=== PATIENT | female | born 1965 | race Two or more races ===

== ENCOUNTER 2023-04-30 00:44 | Emergency (ER) | payer SELFPAY ==
[2023-04-30] MEDS ORDERED: Labetalol 20 MG/4 ML Syringe IVPUSH ONE (01:04)
[2023-04-30 01:11] LABS: BASOPHILS PERCENT AUTO 0.3 % (0.1-1.3); EOSINOPHILS ABSOLUTE AUTO 0.18 K/uL (0.00-0.40); EOSINOPHILS PERCENT AUTO 2.3 % (0.0-5.4); HEMATOCRIT 44.2 % (34.3-46.0); HEMOGLOBIN 14.2 g/dL (11.2-15.5); IMMATURE GRAN PERCENT AUTO 0.3 % (0.0-0.7); LYMPHOCYTES ABSOLUTE AUTO 3.61 K/uL (0.8-3.3); LYMPHOCYTES PERCENT AUTO 45.9 % (11.4-47.7); MEAN CORPUSCULAR HEMOGLOBIN 29.2 pg (31.6-35.5); MEAN CORPUSCULAR HGB CONC 32.1 g/dL (31.6-35.5); MEAN CORPUSCULAR VOLUME 90.9 fL (81.4-99.0); MONOCYTES ABSOLUTE AUTO 0.57 K/uL (0.20-0.90); MONOCYTES PERCENT AUTO 7.3 % (3.3-12.6); NEUTROPHILS ABSOLUTE AUTO 3.46 K/uL (1.0-7.6); NEUTROPHILS PERCENT AUTO 43.9 % (40.0-78.1); PLATELET COUNT,PLT 190 K/uL (130-375); RED BLOOD CELL COUNT 4.86 M/uL (3.77-5.24); WHITE BLOOD CELL COUNT,WBC 7.9 K/uL (3.2-11.0)
[2023-04-30 01:13] LABS: BASOPHILS ABSOLUTE AUTO 0.02 K/uL (0.00-0.10); IMMATURE GRAN ABSOLUTE AUTO 0.02 K/uL (0.00-0.23)
[2023-04-30 01:27] LABS: CALCIUM 8.9 mg/dL (8.5-10.1); CREATININE 0.8 mg/dL (0.6-1.0); EST CRCL DRUG DOSING (CG) 63.41 mL/min; POTASSIUM,K 3.5 mmol/L (3.6-5.2)
[2023-04-30 01:28] LABS: ANION GAP 9.5 mmol/L (5.0-14.0)
[2023-04-30] MEDS ORDERED: methylPREDNISolone Sodium Succinate 125 MG/2 ML SDV IVPUSH ONE (01:42)
== END 2023-04-30 02:11 | disposition home or self-care (01) ==
LOC: JP.ED 00:44
DX: G51.0 Bell's palsy (principal)
CPT/HCPCS: 36415; 70450; 80048; 82947; 85025; 96374; 96375; 99284; J2930; J3490

== ENCOUNTER 2023-05-08 03:12 | Emergency (ER) | payer SELFPAY ==
[2023-05-08] MEDS ORDERED: Ketorolac 15 MG/ML SDV IM ONE (03:57)
[2023-05-08] MEDS ORDERED: Mineral Oil/Petrolatum Ophth Oint 3.5 GM Tube EYELF SCH ×2 (04:25→21:00)
== END 2023-05-08 05:24 | disposition home or self-care (01) ==
LOC: JP.ED 03:12
DX: G51.0 Bell's palsy (principal); I10 Essential (primary) hypertension; E11.9 Type 2 diabetes mellitus without complications
CPT/HCPCS: 96372; 99283; A9270; J1885